=== PATIENT | female | born 1985 | race Caucasian/White ===

== ENCOUNTER 2016-10-26 19:32 | Emergency (ER) | payer OTHER ==
[2016-10-26 19:39] VITALS: TEMP 97.9; BMI 36.6
--- NOTE | 2016-10-26 20:01 | PDOC ---
History of Present Illness - General History Source: Patient Exam Limitations: No Limitations - History of Present Illness Initial Comments: 10/26/16 23:46 The patient is 30-year-old approximately 5 weeks female, , with no significant past medical history, who presents to the emergency department complaining of vaginal bleeding for 4 days. The patient states that on Saturday, when her symptoms began, she noticed pink-brown discharge. On Saturday and she describes her vaginal discharge as watery. She reports that earlier today, Saturday, she noticed bloody discharge, similar to her menstrual periods. She denies abdominal pain, dysuria, hematuria, frequency, or urgency. The patient reports she has now stopped bleeding. She reports her blood type as B-positive. The patient denies fever, chills, cough, headache, and dizziness. The patient denies nausea, vomiting, diarrhea, and constipation. Allergies: None reported. Past Surgical History: None reported. Social History: Non-smoker. Denies alcohol or drug use. <Kennedy Hernandez - Last Filed: 10/27/16 00:42> <Lucero Rick - Last Filed: 10/28/16 02:14> - General Chief Complaint: Vaginal Bleeding Stated Complaint: VAGINAL BLEEDING, PREG. Past History <Kennedy Hernandez - Last Filed: 10/27/16 00:42> - Past Medical History Diabetes: Yes Other medical history: hyperlactin - Psycho/Social/Smoking Cessation Hx Suicidal Ideation: No Smoking History: Never smoked Have you smoked in the past 12 months: No Information on smoking cessation initiated: No Hx Alcohol Use: No Drug/Substance Use Hx: No <Lucero Rick - Last Filed: 10/28/16 02:14> - Past Medical History Allergies/Adverse Reactions: Allergies Allergy/AdvReac Type Severity Reaction Status Date / Time No Known Allergies Allergy Verified 10/26/16 19:35 Home Medications: Ambulatory Orders Pnv95/Ferrous Fumarate/FA [ Caplet] 1 each PO DAILY 10/26/16 Review of Systems - Review of Systems Able to Perform ROS?: Yes Comments:: 10/26/16 23:47 GENERAL/CONSTITUTIONAL: No fever or chills. No weakness. HEAD, EYES, EARS, NOSE AND THROAT: No change in vision. No ear pain or discharge. No sore throat. CARDIOVASCULAR: No chest pain or shortness of breath. RESPIRATORY: No cough, wheezing, or hemoptysis. GASTROINTESTINAL: No nausea, vomiting, diarrhea or constipation. GENITOURINARY: +Vaginal bleeding. No dysuria, frequency, or change in urination. MUSCULOSKELETAL: No joint or muscle swelling or pain. No neck or back pain. SKIN: No rash NEUROLOGIC: No headache, vertigo, loss of consciousness, or change in strength/ sensation. ENDOCRINE: No increased thirst. No abnormal weight change. HEMATOLOGIC/LYMPHATIC: No anemia, easy bleeding, or history of blood clots. ALLERGIC/IMMUNOLOGIC: No hives or skin allergy. <Kennedy Hernandez - Last Filed: 10/27/16 00:42> *Physical Exam - Vital Signs Last Vital Signs Temp Pulse Resp BP Pulse Ox 97.9 F 95 H 14 139/77 100 10/26/16 19:36 10/26/16 19:36 10/26/16 19:36 10/26/16 19:36 10/26/16 19:36 - Physical Exam Comments: 10/26/16 23:47 GENERAL: Awake, alert, and fully oriented, in no acute distress HEAD: No signs of trauma EYES: PERRLA, EOMI, sclera anicteric, conjunctiva clear ENT: Auricles normal inspection, hearing grossly normal, nares patent, oropharynx clear without exudates. Moist mucosa NECK: Normal ROM, supple, no lymphadenopathy, JVD, or masses LUNGS: Breath sounds equal, clear to auscultation bilaterally. No wheezes, and no crackles HEART: Regular rate and rhythm, normal S1 and S2, no murmurs, rubs or gallops ABDOMEN: Soft, nontender, normoactive bowel sounds. No guarding, no rebound. No masses EXTREMITIES: Normal range of motion, no edema. No clubbing or cyanosis. No cords, erythema, or tenderness NEUROLOGICAL: Cranial nerves II through XII grossly intact. Normal speech, normal gait SKIN: Warm, Dry, normal turgor, no rashes or lesions noted. <Kennedy Hernandez - Last Filed: 10/27/16 00:42> - Vital Signs Last Vital Signs Temp Pulse Resp BP Pulse Ox 97.9 F 95 H 14 139/77 100 10/26/16 19:36 10/26/16 19:36 10/26/16 19:36 10/26/16 19:36 10/26/16 19:36 <Lucero Rick - Last Filed: 10/28/16 02:14> ED Treatment Course - LABORATORY CBC & Chemistry Diagram: 10/26/16 20:54 10/26/16 20:54 - ADDITIONAL ORDERS Additional order review: Laboratory Results 10/26/16 10/26/16 21:10 20:54 Sodium 139 Potassium 3.7 Chloride 103 Carbon Dioxide 29 Anion Gap 7 L BUN 7 Creatinine 0.6 Creat Clearance w eGFR > 60 Random Glucose 82 Calcium 8.6 Total Bilirubin 0.2 AST 16 ALT 30 Alkaline Phosphatase 71 Total Protein 7.2 Albumin 3.8 Beta HCG, Quant 1675.4 Urine Color Red Urine Appearance Slcloudy Urine pH 5.0 Ur Specific [place] 1.010 Urine Protein 1+ H Urine Glucose (UA) Negative Urine Ketones Negative Urine Blood 3+ H Urine Nitrite Negative Urine Bilirubin Negative Urine Urobilinogen Negative Ur Leukocyte Esterase Trace H Urine RBC 395 Urine WBC 34 Ur Epithelial Cells Few Urine Bacteria Rare Urine Mucus Rare 10/26/16 20:54 RBC 4.44 MCV 81.1 MCHC 33.7 RDW 15.2 MPV 9.5 Neutrophils % 58.4 Lymphocytes % 32.8 Monocytes % 6.8 Eosinophils % 1.3 Basophils % 0.7 - RADIOLOGY Radiology Studies Ordered: 10/27/16 00:42 EXAM: Transvaginal US INTERPRETED BY: Dr. Pereira REVIEWED BY: Dr. Rick IMPRESSION: An intrauterine gestational sac containing a yolk sac is identified. The mean gestational sac diameter corresponds to an approximate gestational age of 5 weeks 1 day. No embryonic pole is identified at this time. A small subchorionic implantation bleed is seen. A small amount of free fluid is noted within the cul-de-sac. A 3.5 cm left ovarian cyst is seen without obvious associated thickened internal septation or soft tissue nodularity. The right ovary could not be definitely visualized. <Kennedy Hernandez - Last Filed: 10/27/16 00:42> - LABORATORY CBC & Chemistry Diagram: 10/26/16 20:54 10/26/16 20:54 <Lucero Rick - Last Filed: 10/28/16 02:14> Medical Decision Making - Medical Decision Making 10/26/16 23:35 Pt's blood type is B+; she states that she has had no pregnancies in the past. SHe is . 10/28/16 02:11 Pt states that she had vag spotting that turned to slightly heavier bleeding now over the past 3-4 days. No pain at this time. SHe has no dysuria. SHe has no flankpain and no fever. BHCG is 1600+ and her sono demonstrates IUP approx 5 weeks. SHe will be asked to follow with her WASTE RECYCLER; she has an appointment in the coming weeks. She understands to come sooner for worsening pain, and she understands that one of her adnexa was not visualized and that she may have a herterotopic that we were unable to warehouse order picker. <Lucero Rick - Last Filed: 10/28/16 02:14> *DC/Admit/Observation/Transfer - Attestations Scribe Attestion: 10/26/16 23:48 Documentation prepared by Kennedy Hernandez, acting as medical physiologist for Lucero Rick MD. <Kennedy Hernandez - Last Filed: 10/27/16 00:42> - Discharge Dispostion Admit: No <Lucero Rick - Last Filed: 10/28/16 02:14> Diagnosis at time of Disposition: Threatened - Discharge Dispostion Disposition: HOME Condition at time of disposition: Stable - Referrals Referrals: STAFF,NOT ON [Primary Care Provider] - Monica David MD [Staff Physician] - Theresa Saleem MD [Staff Physician] - - Patient Instructions Printed Discharge Instructions: DI for Threatened
[2016-10-26 21:09] LABS: BASOPHIL 0.7 % (0-2.0); EOSINOPHIL 1.3 % (0-4.5); MCH 27.3 pg (25.7-33.7); MCHC 33.7 g/dl (32.0-36.0); MEAN CELL VOLUME 81.1 fl (80-96); MEAN PLT VOLUME 9.5 fl (7.5-11.1); NEUTROPHILS 58.4 % (42.8-82.8); PLATELET COUNT 294 K/MM3 (134-434); RDW 15.2 % (11.6-15.6); WHITE BLOOD COUNT 6.3 K/mm3 (4.0-10.0)
[2016-10-26 21:20] LABS: URINE APPEARANCE SLCLOUDY; URINE BILIRUBIN NEGATIVE (NEGATIVE); URINE COLOR RED; URINE GLUCOSE (UA) NEGATIVE (NEGATIVE); URINE KETONE NEGATIVE (NEGATIVE); URINE NITRITE NEGATIVE (NEGATIVE); URINE UROBILINOGEN NEGATIVE E.U./dl (0.2-1.0)
[2016-10-26 21:27] LABS: URINE BLOOD 3+ (NEGATIVE); URINE LEUK ESTERASE TRACE (NEGATIVE); URINE PROTEIN 1+ (NEGATIVE)
[2016-10-26 21:33] LABS: ALBUMIN 3.8 g/dl (3.4-5.0); ALK PHOS 71 U/L (45-117); ANION GAP 7 (8-16); BILIRUBIN,TOTAL 0.2 mg/dL (0.2-1.0); CALCIUM 8.6 mg/dL (8.5-10.1); CO2 29 mmol/L (21-32); CREATININE 0.6 mg/dL (0.55-1.02); GLUCOSE,RANDOM 82 mg/dL (74-106); SGOT/AST 16 U/L (15-37); SGPT/ALT 30 U/L (12-78); TOT PROT 7.2 g/dl (6.4-8.2)
[2016-10-26 21:38] LABS: URINE BACTERIA RARE /hpf (NONE SEEN); URINE MUCUS RARE; URINE RBC 395 /hpf (0-3); URINE WBC 34 /hpf (3-5)
[2016-10-27 00:05] VITALS: BP 128/84; PULSE 78
== END 2016-10-27 | disposition home or self-care (01) ==
LOC: JER 19:32
DX: O20.0 Threatened abortion (principal); O34.81 Maternal care for other abnormalities of pelvic organs, first trimester; N83.292 Other ovarian cyst, left side; Z3A.01 Less than 8 weeks gestation of pregnancy
CPT/HCPCS: 36415; 76817-TC; 80053; 81003; 81015; 84702; 85025; 86850; 86900; 86901; 99281-25

== ENCOUNTER 2016-11-04 23:17 | Emergency (ER) | payer OTHER ==
[2016-11-04 23:24] VITALS: BP 130/71; PULSE 92; TEMP 97.8; BMI 36.4
--- NOTE | 2016-11-05 00:49 | PDOC ---
History of Present Illness - History of Present Illness Initial Comments: 11/05/16 01:11 Patient is a 30 year old female (6 weeks) with no significant medical hx who is presenting to the ED with abdominal cramping and vaginal bleeding for one day. Patient reports today began having heavy vaginal bleeding that has saturated more than one pad. She states that she's been passing blood clots. The patient was seen here 10/26/16 and received an US that revealed an intrauterine approximate gestational age of 5 weeks and 1 day with a small subchorionic bleed. Her betaHCG at that time was found at 1675. Denies surgical hx, tobacco use, alcohol use. <Cleo Rob - Last Filed: 11/05/16 01:11> <Gladis Becerra - Last Filed: 11/05/16 02:57> - General Chief Complaint: Vaginal Bleeding Stated Complaint: 6WKS/VAGINAL BLEEDING Time Seen by Provider: 11/04/16 23:59 Past History <Cleo Rob - Last Filed: 11/05/16 01:11> - Past Medical History Diabetes: Yes - Reproductive History (#): 0 Para: 0 Therapeutic (s) & number: No Spontaneous : 0 - Psycho/Social/Smoking Cessation Hx Suicidal Ideation: No Smoking History: Never smoked Have you smoked in the past 12 months: No Number of Cigarettes Smoked Daily: 0 Information on smoking cessation initiated: No Hx Alcohol Use: No Drug/Substance Use Hx: No <Gladis Becerra - Last Filed: 11/05/16 02:57> - Past Medical History Allergies/Adverse Reactions: Allergies Allergy/AdvReac Type Severity Reaction Status Date / Time No Known Allergies Allergy Verified 11/04/16 23:21 Home Medications: Ambulatory Orders Pnv95/Ferrous Fumarate/FA [ Caplet] 1 each PO DAILY 10/26/16 Review of Systems - Review of Systems Comments:: 11/05/16 01:16 CONSTITUTIONAL: Absent: fever, chills, diaphoresis, generalized weakness, malaise, loss of appetite HEENT: Absent: rhinorrhea, nasal congestion, throat pain, throat swelling, difficulty swallowing, mouth swelling, ear pain, eye pain, visual changes CARDIOVASCULAR: Absent: chest pain, syncope, palpitations, irregular heart rate, lightheadedness , peripheral edema RESPIRATORY: Absent: cough, shortness of breath, dyspnea with exertion, orthopnea, wheezing, stridor, hemoptysis GASTROINTESTINAL: Present: abdominal cramping Absent: abdominal distension, nausea, vomiting, diarrhea, constipation, melena, hematochezia GENITOURINARY: Present: vaginal bleeding Absent: dysuria, frequency, urgency, hesitancy, hematuria, flank pain, genital pain MUSCULOSKELETAL: Absent: myalgia, arthralgia, joint swelling SKIN: Absent: rash, itching, pallor HEMATOLOGIC/IMMUNOLOGIC: Absent: easy bleeding, easy bruising, lymphadenopathy, frequent infections ENDOCRINE: Absent: unexplained weight gain, unexplained weight loss, heat intolerance, cold intolerance NEUROLOGIC: Absent: headache, focal weakness or paresthesia, dizziness, unsteady gait, seizure, mental status changes, bladder or bowel incontinence. PSYCHIATRIC: Absent: anxiety, depression, suicidal or homicidal ideation, hallucinations <Cleo Rob - Last Filed: 11/05/16 01:11> *Physical Exam - Vital Signs Last Vital Signs Temp Pulse Resp BP Pulse Ox 97.8 F 92 H 16 130/71 100 11/04/16 23:22 11/04/16 23:22 11/04/16 23:22 11/04/16 23:22 11/04/16 23:22 - Physical Exam Comments: 11/05/16 01:17 GENERAL: Well developed, well nourished. Awake and alert. No acute distress. HEENT: Normocephalic, atraumatic. PERRLA, EOMI. No conjunctival pallor. Sclera are non- icteric. Moist mucous membranes. Oropharynx is clear. NECK: Supple. Full ROM. No JVD. Carotid pulses 2+ and symmetric, without bruits. No thyromegaly. No lymphadenopathy. CARDIOVASCULAR: Regular rate and rhythm. No murmurs, rubs, or gallops. Distal pulses are 2+ and symmetric. PULMONARY: No evidence of respiratory distress. Lungs clear to auscultation bilaterally. No wheezing, rales or rhonchi. ABDOMINAL: Soft. Non-tender. Non-distended. No rebound or guarding. No organomegaly. Normoactive bowel sounds. MUSCULOSKELETAL: Normal range of motion at all joints. No bony deformities or tenderness. No CVA tenderness. EXTREMITIES: No cyanosis. No clubbing. No edema. No calf tenderness. SKIN: Warm and dry. Normal capillary refill. No rashes. No jaundice. NEUROLOGICAL: Alert, awake, appropriate. Cranial nerves 2-12 intact. Normal speech. Gait is normal without ataxia. PSYCHIATRIC: Cooperative. Good eye contact. Appropriate mood and affect. <Cleo Rob - Last Filed: 11/05/16 01:11> - Vital Signs Last Vital Signs Temp Pulse Resp BP Pulse Ox 97.8 F 92 H 16 130/71 100 11/04/16 23:22 11/04/16 23:22 11/04/16 23:22 11/04/16 23:22 11/04/16 23:22 <Gladis Becerra - Last Filed: 11/05/16 02:57> ED Treatment Course - LABORATORY CBC & Chemistry Diagram: 11/05/16 00:45 11/05/16 00:45 <Gladis Becerra - Last Filed: 11/05/16 02:57> Medical Decision Making - Medical Decision Making 11/05/16 02:41 30-year-old female who presents with vaginal bleeding. She is currently and noted passages of large clots today She was seen on October 16 and at that time her type and screen was done and she is B+ On October 26. Her beta hCG was 1675 She had an ultrasound that showed an intrauterine of about 5 weeks Tonight there is no IUP in her transvaginal ultrasound. There is thickened heterogeneous endometrium. Left ovarian cyst. Otherwise, normal appearance of the ovaries with normal vascular flow seen bilaterally IMP: miscarriage <Gladis Becerra - Last Filed: 11/05/16 02:57> *DC/Admit/Observation/Transfer - Attestations Scribe Attestion: 11/05/16 01:18 Documentation prepared by Cleo Rob, acting as medical tech for Gladis Becerra MD. <Cleo Rob - Last Filed: 11/05/16 01:11> <Gladis Becerra - Last Filed: 11/05/16 02:57> Diagnosis at time of Disposition: Miscarriage - Discharge Dispostion Condition at time of disposition: Stable - Patient Instructions Printed Discharge Instructions: DI for Miscarriage Additional Instructions: It is important to follow up with your senior analyst developer for one final test to make sure it has returned to negative Your bhcg is 1977 and this must be repeated because on your ultrasound they do not see a in the uterus at this time. Back on October 26 there was an intrauterine
[2016-11-05 01:39] LABS: BASOPHIL 0.3 % (0-2.0); MCH 27.3 pg (25.7-33.7); MCHC 33.3 g/dl (32.0-36.0); MEAN PLT VOLUME 9.8 fl (7.5-11.1); NEUTROPHILS 53.5 % (42.8-82.8); PLATELET COUNT 299 K/MM3 (134-434); RDW 15.9 % (11.6-15.6); WHITE BLOOD COUNT 6.9 K/mm3 (4.0-10.0)
[2016-11-05 02:08] LABS: URINE APPEARANCE TURBID; URINE BILIRUBIN NEGATIVE (NEGATIVE); URINE COLOR RED; URINE GLUCOSE (UA) 1+ (NEGATIVE); URINE KETONE NEGATIVE (NEGATIVE); URINE LEUK ESTERASE NEGATIVE (NEGATIVE); URINE NITRITE NEGATIVE (NEGATIVE); URINE UROBILINOGEN NEGATIVE E.U./dl (0.2-1.0)
[2016-11-05 02:10] LABS: URINE BLOOD 2+ (NEGATIVE); URINE PROTEIN 2+ (NEGATIVE)
[2016-11-05 02:18] LABS: URINE RBC 4525 /hpf (0-3)
[2016-11-05 02:20] LABS: URINE WBC 2 /hpf (3-5)
[2016-11-05 02:38] LABS: ALBUMIN 4.1 g/dl (3.4-5.0); ANION GAP 12 (8-16); BILIRUBIN,TOTAL 0.2 mg/dL (0.2-1.0); CALCIUM 8.8 mg/dL (8.5-10.1); CO2 23 mmol/L (21-32); CREATININE 0.7 mg/dL (0.55-1.02); GLUCOSE,RANDOM 97 mg/dL (74-106); SGOT/AST 12 U/L (15-37); SGPT/ALT 27 U/L (12-78); TOT PROT 7.7 g/dl (6.4-8.2)
[2016-11-05 02:39] LABS: ALK PHOS 75 U/L (45-117)
== END 2016-11-05 03:01 | disposition home or self-care (01) ==
LOC: JER 23:17
DX: O02.1 Missed abortion (principal); Z3A.01 Less than 8 weeks gestation of pregnancy
CPT/HCPCS: 36415; 76817-TC; 80053; 81003; 81015; 84702; 84703; 85025; 86850; 86900; 86901; 99282-25